=== PATIENT | male | born 1955 | race African-American/Black ===

== ENCOUNTER 2017-11-09 14:29 | Emergency (ER) | payer MEDICARE, MEDICAID ==
[~2017-11-09] VITALS: Ht 182.9 cm; Wt 93.0 kg
[~2017-11-09 14:29] MED LIST: ROSU10TA
[2017-11-09] MEDS ORDERED: SODIUM CHLORIDE 0.9% 1,000 ML IV ONE (16:15)
[2017-11-09] MEDS ORDERED: ONDANSETRON HCL 4MG/2ML VIAL IV ONE (16:15)
[2017-11-09 16:49] LABS: HEMATOCRIT. 48.8 % (42.0-52.0); MEAN CORPUSCULAR HEMOGLOBIN 29.9 pg (28.0-32.0); MEAN CORPUSCULAR VOLUME 91.1 fL (80.0-94.0); MEAN PLATELET VOLUME 9.6 fl (7.4-10.4); PLATELET 186 x1000/uL (130-400); RED BLOOD CELL COUNT 5.36 mill/uL (4.7-6.1); RED CELL DISTRIBUTION WIDTH 14.4 % (11.6-14.6)
[2017-11-09 16:56] LABS: CHLORIDE 107 mEq/L (98-107)
[2017-11-09 17:45] LABS: PLATELET ESTIMATE NORMAL
[2017-11-09 17:59] VITALS: BP 172/90
== END 2017-11-09 19:17 | disposition left against medical advice (07) ==
LOC: ER 14:48
DX: K52.9 Noninfective gastroenteritis and colitis, unspecified (principal); E11.9 Type 2 diabetes mellitus without complications
CPT/HCPCS: 36415; 80048; 85025; 96361; 96374; 99284; J2405; J7030

== ENCOUNTER 2018-10-07 11:46 | Inpatient (IN) | payer MEDICARE, MEDICAID ==
[~2018-10-07] VITALS: Ht 175.3 cm; Wt 79.4 kg
[2018-10-07] MEDS ORDERED: SODIUM CHLORIDE 0.9% 500 ML IV ONE (13:42)
[2018-10-07] MEDS ORDERED: MECLIZINE 25MG TABLET PO ONE (13:45)
[2018-10-07] MEDS ORDERED: ONDANSETRON HCL 4MG/2ML INJ IV ONE (13:45)
[2018-10-07 15:09] LABS: BASOPHILS % 0.3 % (0.0-2.0); EOSINOPHILS % 2.6 % (0.0-5.0); LYMPHOCYTES % 52.4 % (20.0-50.0); MEAN CORPUSCULAR HEMOGLOBIN 30.7 pg (28.0-32.0); MEAN CORPUSCULAR VOLUME 92.1 fL (80.0-94.0); MEAN PLATELET VOLUME 9.5 fl (7.4-10.4); MONOCYTES % 12.9 % (2.0-8.0); NEUTROPHILS % 31.8 % (40.0-76.0); PLATELET 187 x1000/uL (130-400); RED BLOOD CELL COUNT 4.56 mill/uL (4.7-6.1); RED CELL DISTRIBUTION WIDTH 14.2 % (11.6-14.6)
[2018-10-07 15:13] LABS: CHLORIDE 109 mEq/L (98-107)
[2018-10-07 15:14] LABS: PARTIAL THROMBOPLASTIN TIME 27.4 sec (23.4-31.0); PROTHROMBIN TIME 10.3 sec (9.1-11.1)
[2018-10-07 15:19] LABS: ETHANOL BLOOD < 10 mg/dL
[2018-10-07 15:24] LABS: CREATINE KINASE 297 IU/L (39-308)
[2018-10-07 15:27] LABS: CREATINE KINASE MB FRACTION 1.9 ng/mL (0.5-3.6)
[2018-10-07 16:37] LABS: CLARITY URINE CLEAR (CLEAR); COLOR URINE YELLOW (YELLOW); KETONES URINE NEGATIVE (NEGATIVE); LEUKOCYTE ESTERASE URINE 1+ (NEGATIVE); NITRITE URINE NEGATIVE (NEGATIVE); OCCULT BLOOD URINE NEGATIVE (NEGATIVE); PH URINE 6.5 (4.5-8.0); PROTEIN URINE NEGATIVE (NEGATIVE); SPECIFIC GRAVITY URINE 1.016 (1.005-1.030); UROBILINOGEN URINE 0.2 E.U./dL (0.2-1.0)
[2018-10-07 16:53] LABS: *AMPHETAMINES SCREEN URINE NEGATIVE (NEGATIVE); *BARBITURATES SCREEN URINE NEGATIVE (NEGATIVE); *BENZODIAZEPINES SCREEN URINE PRESUMTIVE POSITIVE (NEGATIVE); *COCAINE SCREEN URINE NEGATIVE (NEGATIVE)
[2018-10-07 16:54] LABS: CANNABINOID URINE SCREEN NEGATIVE (NEGATIVE); METHADONE URINE SCREEN NEGATIVE (NEGATIVE); OPIATES URINE SCREEN NEGATIVE (NEGATIVE); PHENCYCLIDINE URINE SCREEN NEGATIVE (NEGATIVE)
[2018-10-07 18:00] VITALS: BP 161/92
[2018-10-07 20:00] VITALS: BP 162/80
[2018-10-07] MEDS: AMLODIPINE 2.5MG TABLET PO SCH (20:30)
[2018-10-08] VITALS: BP 137/81
[2018-10-08] MEDS: MECLIZINE 25MG TABLET PO SCH ×3 (01:11→09:59)
[2018-10-08 04:00] VITALS: BP 122/67
[2018-10-08 06:52] LABS: BASOPHILS % 0.5 % (0.0-2.0); EOSINOPHILS % 3.8 % (0.0-5.0); HEMATOCRIT. 40.4 % (42.0-52.0); HEMOGLOBIN. 13.7 g/dL (14.0-18.0); LYMPHOCYTES % 46.5 % (20.0-50.0); MEAN CORPUSCULAR HEMOGLOBIN 30.8 pg (28.0-32.0); MEAN PLATELET VOLUME 9.6 fl (7.4-10.4); MONOCYTES % 9.7 % (2.0-8.0); NEUTROPHILS % 39.5 % (40.0-76.0); PLATELET 176 x1000/uL (130-400); RED BLOOD CELL COUNT 4.44 mill/uL (4.7-6.1)
[2018-10-08 08:00] VITALS: BP 126/78
[2018-10-08] MEDS: AMLODIPINE 2.5MG TABLET PO SCH ×2 (09:00→09:59)
[2018-10-08 09:02] LABS: CHLORIDE 108 mEq/L (98-107)
[2018-10-08 09:14] LABS: LDL CHOLESTEROL 151 mg/dL (5-100)
[2018-10-08 09:16] LABS: HDL CHOLESTEROL 42 mg/dL (40-59)
[2018-10-08 09:27] VITALS: BP 126/78
== END 2018-10-08 11:02 | disposition home or self-care (01) | DRG 149 ==
LOC: ER 11:46 → 6WST 16:13 → ENRESERV 16:57
PROVIDERS: ADMIT Internal Medicine; ATTEND Internal Medicine
DX: H81.10 Benign paroxysmal vertigo, unspecified ear (principal); K85.90 Acute pancreatitis without necrosis or infection, unspecified; E11.42 Type 2 diabetes mellitus with diabetic polyneuropathy; E78.5 Hyperlipidemia, unspecified; E66.9 Obesity, unspecified; D72.819 Decreased white blood cell count, unspecified; B19.20 Unspecified viral hepatitis C without hepatic coma; L30.9 Dermatitis, unspecified; F17.290 Nicotine dependence, other tobacco product, uncomplicated; I10 Essential (primary) hypertension; N40.0 Benign prostatic hyperplasia without lower urinary tract symptoms; N52.9 Male erectile dysfunction, unspecified; T50.905A Adverse effect of unspecified drugs, medicaments and biological substances, initial encounter; Y92.89 Other specified places as the place of occurrence of the external cause; Z68.25 Body mass index [BMI] 25.0-25.9, adult; Z79.899 Other long term (current) drug therapy
CPT/HCPCS: 36415; 71045; 80048; 80061; 80305; 82550; 82553; 82962; 83036; 83735; 83880; 84484; 93005; 93306; 96361; 96374; 99285; G0482; J2405; J7040; J8597

== ENCOUNTER 2021-03-05 18:52 | Emergency (ER) | payer MEDICARE, MEDICAID ==
[~2021-03-05] VITALS: Ht 172.7 cm; Wt 95.0 kg
[~2021-03-05 18:52] MED LIST changes: +ASPI-1073 PO; +METF-873 PO; -ROSU10TA; +ROSU20TA2 PO
[2021-03-05] MEDS ORDERED: IBUPROFEN 600MG TABLET PO STA (19:51)
[2021-03-05 20:16] LABS: BASOPHILS % 0.4 % (0.0-2.0); EOSINOPHILS % 4.7 % (0.0-5.0); HEMATOCRIT. 42.7 % (42.0-52.0); HEMOGLOBIN. 14.4 g/dL (14.0-18.0); LYMPHOCYTES % 42.9 % (20.0-50.0); MEAN CORPUSCULAR HEMOGLOBIN 30.8 pg (28.0-32.0); MEAN CORPUSCULAR VOLUME 91.4 fL (80.0-94.0); MEAN PLATELET VOLUME 9.3 fl (7.4-10.4); MONOCYTES % 9.6 % (2.0-8.0); NEUTROPHILS % 42.4 % (40.0-76.0); PLATELET 185 x1000/uL (130-400); RED BLOOD CELL COUNT 4.67 mill/uL (4.7-6.1); RED CELL DISTRIBUTION WIDTH 14.2 % (11.6-14.6)
[2021-03-05 20:22] LABS: CHLORIDE 109 mEq/L (98-107)
[2021-03-05 22:37] VITALS: BP 150/88
== END 2021-03-05 22:42 | disposition home or self-care (01) ==
LOC: ER 18:52
DX: R07.89 Other chest pain (principal); I10 Essential (primary) hypertension; Z79.899 Other long term (current) drug therapy; Z79.82 Long term (current) use of aspirin
CPT/HCPCS: 36415; 71045; 80053; 84484; 85025; 93005; 99285

== ENCOUNTER 2021-07-17 20:00 | Emergency (ER) | payer MEDICARE, MEDICAID ==
[~2021-07-17] VITALS: Ht 172.7 cm; Wt 96.0 kg
[2021-07-17] MEDS ORDERED: IBUPROFEN 400MG TABLET PO ONE (23:30)
[2021-07-18] MEDS ORDERED: IBUP-2028 MT (00:50)
[2021-07-18 02:44] VITALS: BP 132/79
== END 2021-07-18 02:49 | disposition home or self-care (01) ==
LOC: ER 20:00
DX: M25.512 Pain in left shoulder (principal); R07.89 Other chest pain; M54.5 Low back pain; E78.00 Pure hypercholesterolemia, unspecified; I10 Essential (primary) hypertension; V49.49XA Driver injured in collision with other motor vehicles in traffic accident, initial encounter; Y93.89 Activity, other specified; Y92.89 Other specified places as the place of occurrence of the external cause; Y99.8 Other external cause status
CPT/HCPCS: 71045; 72100; 73030; 73560; 93005; 99284

== ENCOUNTER 2022-04-05 22:16 | Emergency (ER) | payer MEDICARE, MEDICAID ==
[~2022-04-05] VITALS: Ht 175.3 cm; Wt 94.3 kg
[~2022-04-05 22:16] MED LIST changes: +IBUP-2028 MT
[2022-04-06] MEDS ORDERED: HYDROCODONE/ACETAMINOPHEN 5/325MG TABLET PO ONE (01:30)
[2022-04-06 02:40] VITALS: BP 146/78
== END 2022-04-06 03:01 | disposition home or self-care (01) ==
LOC: ER 22:16
DX: S06.890A Other specified intracranial injury without loss of consciousness, initial encounter (principal); R51.9 Headache, unspecified; M25.512 Pain in left shoulder; V49.49XA Driver injured in collision with other motor vehicles in traffic accident, initial encounter; Y93.89 Activity, other specified; Y92.89 Other specified places as the place of occurrence of the external cause; Y99.8 Other external cause status; E78.00 Pure hypercholesterolemia, unspecified; I10 Essential (primary) hypertension; Z98.890 Other specified postprocedural states
CPT/HCPCS: 73030; 99284

== ENCOUNTER 2023-01-01 17:20 | Emergency (ER) | payer MEDICARE, MEDICAID ==
[~2023-01-01] VITALS: Ht 172.7 cm; Wt 90.0 kg
[2023-01-01 17:31] VITALS: BP 161/93
[2023-01-01] MEDS ORDERED: ASPIRIN 325MG EC TABLET PO ONE (20:15)
[2023-01-01 20:29] LABS: BASOPHILS % 0.5 % (0.0-2.0); EOSINOPHILS % 3.9 % (0.0-5.0); HEMATOCRIT. 45.1 % (42.0-52.0); HEMOGLOBIN. 14.9 g/dL (14.0-18.0); LYMPHOCYTES % 43.2 % (20.0-50.0); MEAN CORPUSCULAR HEMOGLOBIN 30.4 pg (28.0-32.0); MEAN CORPUSCULAR VOLUME 91.9 fL (80.0-94.0); MEAN PLATELET VOLUME 8.9 fl (7.4-10.4); MONOCYTES % 8.4 % (2.0-8.0); PLATELET 205 x1000/uL (130-400); RED BLOOD CELL COUNT 4.91 mill/uL (4.7-6.1); RED CELL DISTRIBUTION WIDTH 14.7 % (11.6-14.6)
[2023-01-01 20:37] LABS: CHLORIDE 109 mEq/L (98-107)
[2023-01-01] MEDS ORDERED: NITR0.4T49 SL (23:52)
[2023-01-01] MEDS ORDERED: TOPUD MT (23:53)
== END 2023-01-02 00:30 | disposition home or self-care (01) ==
LOC: ER 17:33
DX: R07.89 Other chest pain (principal); I10 Essential (primary) hypertension; E78.00 Pure hypercholesterolemia, unspecified
CPT/HCPCS: 36415; 71045; 80053; 83880; 85025; 93005; 99285

== ENCOUNTER → 2023-02-08 | Outpatient (CLI) | payer MEDICARE, MEDICAID ==
[~2023-02-08] MED LIST changes: +NITR0.4T49 SL; +TOPUD MT
== END | disposition home or self-care (01) ==
LOC: US 12:22
PROVIDERS: ATTEND Internal Medicine
DX: M19.012 Primary osteoarthritis, left shoulder (principal); M25.812 Other specified joint disorders, left shoulder; M50.13 Cervical disc disorder with radiculopathy, cervicothoracic region; M48.02 Spinal stenosis, cervical region
CPT/HCPCS: 72141; 73221; 76641

== ENCOUNTER 2024-03-26 22:12 | Emergency (ER) | payer MEDICARE, MEDICAID ==
[~2024-03-26] VITALS: Ht 175.3 cm; Wt 86.0 kg
[2024-03-26 22:53] VITALS: BP 120/78; PULSE 89; RESP 18; TEMP 98.6; O2SAT 98
[2024-03-26] MEDS ORDERED: LIDOCAINE HCL 1% 20ML VIAL (Pyxis) INJ INFIL ONE (23:45)
[2024-03-26] MEDS ORDERED: SULF1TAB48 MT (23:51)
[2024-03-26] MEDS ORDERED: NAPR-681 MT (23:51)
[2024-03-26] MEDS ORDERED: BO1 TP (23:51)
== END 2024-03-27 01:54 | disposition home or self-care (01) ==
LOC: ER 22:12
DX: L02.212 Cutaneous abscess of back [any part, except buttock and flank] (principal); E78.00 Pure hypercholesterolemia, unspecified; I10 Essential (primary) hypertension
CPT/HCPCS: 10060; 99282; J3490